=== PATIENT | male | born 1990 | race Caucasian/White ===

== ENCOUNTER 2024-03-05 11:16 | Emergency (ER) | payer BC, SELFPAY ==
[2024-03-05 11:24] VITALS: BP 128/77; PULSE 97; RESP 16; TEMP 37.1; O2SAT 99
[2024-03-05 12:09] LABS: EDINFLUASCREEN Negative; EDINFLUBSCREEN Negative; EDSTREPNEGPOS1 Presumptive Negative
--- NOTE | 2024-03-05 12:17 | ED.GENADULT ---
HPI - General Adult General Chief complaint: Upper Respiratory Infection Stated complaint: Sore Throat Source: patient Mode of arrival: ambulatory Limitations: no limitations History of Present Illness HPI narrative: Patient presents for evaluation of sick symptoms for last 3 days. Symptoms include sore throat, sinus congestion and clear rhinorrhea. He denies any fever, chills, nausea vomiting diarrhea shortness of breath he does not smoke. No recent sick to his knowledge. He is not taking any medications to assist with his symptoms. Related Data Home Medications Medication Instructions Recorded Confirmed cetirizine 10 mg tablet (Zyrtec) 10 mg PO DAILY 03/05/24 03/05/24 fexofenadine 180 mg tablet 180 mg PO DAILY 03/05/24 03/05/24 Allergies Allergy/AdvReac Type Severity Reaction Status Date / Time No Known Allergies Allergy Verified 03/05/24 11:34 Review of Systems Review of Systems: CONSTITUTIONAL: Denies fever, chills, or sweats. EYES: Denies visual changes, redness, or discharge. ENT: Reports sore sinus congestion rhinorrhea. Denies otalgia. CARDIOVASCULAR: Denies chest pain, palpitations, or edema. RESPIRATORY: Denies cough or dyspnea. GASTROINTESTINAL: Denies abdominal pain, nausea, vomiting, or diarrhea. GENITOURINARY: Denies dysuria or hematuria. SKIN: Denies rash or itching. MUSCULOSKELETAL: Denies back pain, joint pain, or myalgia. NEUROLOGIC: Denies headache, numbness, dizziness, or weakness. PSYCHIATRIC: Denies anxiety or depression. PMFSH Past Medical History Medical History Hypogonadism Thyroid disorder Surgical History Surgical History History of ear, nose, and throat (ENT) surgery Family History Family History Mother Family history non-contributory Social History Social History Substance use: never Gender identity (if verbalized by the patient): Male Spiritual care concerns: No Exam Narrative: GENERAL: Well-appearing, well-nourished, and in no acute distress. HEAD: Normocephalic, atraumatic. EYES: PERRLA and EOMI. ENT: Nares clear, no rhinorrhea or epistaxis. Mucous membranes moist. There is posterior pharyngeal erythema without exudate. Uvula is midline. Bilateral TMs pearly velazquez nonbulging NECK: Supple. No adenopathy or masses. No carotid bruits or JVD CHEST: Clear to auscultation. No respiratory distress. No wheezes rales or rhonchi HEART: Regular rate and rhythm. No murmur heard. Normal peripheral pulses. ABDOMEN: Soft, nontender, nondistended, normal active bowel sounds. EXTREMITIES: Normal range of motion. No edema. SKIN: Warm, dry, no rash. NEURO: No focal deficits. Alert and oriented x3. PSYCH: Normal mood and affect. Course Course Emergency Course: This is a 34-year-old male who presented for evaluation of sick symptoms strep negative. Through shared decision making to proceed with antibiotics in the event that strep is false negative. Follow-up with provider. Go to the ER for worsening. Patient in agreement with plan of care. Level of Care: Express Care Visit Vital Signs Vital signs: Vital Signs Temperature 37.1 C 03/05/24 11:24 Pulse Rate 97 03/05/24 11:24 Respiratory Rate 16 03/05/24 11:24 Blood Pressure 128/77 03/05/24 11:24 Pulse Oximetry 99 03/05/24 11:24 Oxygen Delivery Room Air 03/05/24 11:24 Temperature 37.1 C 03/05/24 11:24 Pulse Rate 97 03/05/24 11:24 Respiratory Rate 16 03/05/24 11:24 Blood Pressure 128/77 03/05/24 11:24 Pulse Oximetry 99 03/05/24 11:24 Oxygen Delivery Room Air 03/05/24 11:24 Medical Decision Making Vital Signs Vital Signs: Vital Signs Temperature 37.1 C 03/05/24 11:24 Pulse Rate 97 03/05/24 11:24 Respira
== END 2024-03-05 12:15 | disposition home or self-care (01) ==
PROVIDERS: Emergency Provider Nurse Practitioner
DX: J02.9 Acute pharyngitis, unspecified (principal); Z20.822 Contact with and (suspected) exposure to COVID-19
CPT/HCPCS: 87081; 87426; 87804; 87880; 99203; G0463